=== PATIENT | female | born 1980 | race Caucasian/White ===

== ENCOUNTER 2021-03-18 17:58 | Emergency (ER) | payer OTHER ==
[2021-03-18] MEDS ORDERED: NAPROSYN500 MG PO (20:10)
== END 2021-03-18 20:29 | disposition home or self-care (01) ==
LOC: ER1 17:58
DX: T22.252A Burn of second degree of left shoulder, initial encounter (principal); X08.8XXA Exposure to other specified smoke, fire and flames, initial encounter; Y92.410 Unspecified street and highway as the place of occurrence of the external cause
CPT/HCPCS: 70450; 71045; 72125; 72170; 73030; 73060; 99284